=== PATIENT | male | born 1990 | race Caucasian/White ===

== ENCOUNTER 2017-06-11 14:03 | Emergency (ER) | payer OTHER ==
--- NOTE | 2017-06-11 15:26 | EDPHY ---
H & P Stated Complaint: [facility] then abx now w/ ? rxn to abx Time Seen by Provider: 06/11/17 15:25 - Personal History Current Tetanus/Diphtheria Vaccine: No Current Tetanus Diphtheria and Acellular Pertussis (TDAP): No - Medical/Surgical History Hx Asthma: No Hx Chronic Respiratory Disease: No Hx Diabetes: No Hx Cardiac Disease: No Hx Renal Disease: No Hx Cirrhosis: No Hx Alcoholism: No Hx HIV/AIDS: No Hx Splenectomy or Spleen Trauma: No Other PMH: Denies per PT - Social History Smoking Status: Current some day smoker Constitutional: Initial Vital Signs Temperature (C) 36.9 C 06/11/17 14:07 Heart Rate 102 H 06/11/17 14:07 Respiratory Rate 16 06/11/17 14:07 Blood Pressure 145/83 H 06/11/17 14:07 O2 Sat (%) 96 06/11/17 14:07 O2 Delivery Mode Room Air Allergies/Adverse Reactions: polymyxin B Allergy (Verified 06/11/17 14:07) Home Medications: Medication Instructions Recorded Loteprednol 0.5% [Lotemax 0.5%] 2 drops OP QID #1 opht.btl 06/11/17 Medical Decision Making ED Course/Re-evaluation: CHIEF COMPLAINT: Eye redness HISTORY OF PRESENT ILLNESS: The patient is a 26 y/o male complaining of bilateral eye redness for one month that worsened acutely over the last 3 days after starting eye drops prescribed by urgent care. He went to urgent care 4 days ago and was prescribed polymyxin b and trimethoprim eye drops for possible conjunctivitis. He had no improvement with these drops and noticed increasing redness and now bruising of his eyelids. This morning his eyes looked much more red around his iris and the whites of his eyes. He denies eye pain, vision changes, itching, fever, photophobia, or other complaints. He is normally healthy. REVIEW OF SYSTEMS: A 10 point review of systems was performed and is negative with the exception of the elements mentioned in the history of present illness. PHYSICAL EXAM: HR, BP, O2 Sat, RR. Temp noted General Appearance: Alert, well hydrated, appropriate, and non-toxic appearing. Head: Atraumatic without scalp tenderness or obvious injury Eyes: Pupils equal, round, reactive to light and accommodation, EOMI, no trauma. Conjunctival injection bilaterally. Subconjunctival hemorrhages bilaterally, cornea spared. Chemosis. Bilateral ecchymosis of upper and lower lids Ears: Clear bilaterally, no perforation, normal landmarks Nose: Atraumatic, no rhinorrhea, clear. Throat: Mucus membranes moist. Neck: Supple Respiratory: No distress Cardiovascular: Normal capillary refill. Musculoskeletal: Normal active ROM of all extremities, atraumatic. Neurological: Alert, appropriate, and interactive. Skin: No rashes, good turgor, no nodules on palpation. Past medical history: Denies Past surgical history: Denies Family history: Noncontributory Social history: Daily smoker DIFFERENTIAL DIAGNOSIS: The differential diagnosis for the patient's symptoms included but was not limited to subconjunctival hemorrhages, conjunctivitis, acute allergic reaction to medication and/or viral conjunctivitis. MEDICAL DECISION MAKING: This is a 26 y/o male who presents with bilateral subconjunctival hemorrhages following polymyxin b and trimethoprim eye drops prescribed by urgent care for possible conjunctivitis. The subconjunctival hemorrhages spare his cornea and are associated chemosis, conjunctival injection, and ecchymosis of his lid margins bilaterally. This has not affected his vision and he has no pain. I suspect possible allergic reaction to the medication or reaction to viral conjunctivitis. Plan to consult ophthalmology. [id number]: Consulted with Dr. Solorzano, ophthalmology. He will follow up with him on Tuesday. Recommends Lotemax drops in the meantime. Discussed recommendations with patient. He agrees with plan. Return precautions discussed. Departure - Departure Disposition: Home, Routine, Self-Care Clinical Impression: Subconjunctival hemorrhage Qualifiers: Laterality: bilateral Qualified Code(s): H11.33 - Conjunctival hemorrhage, bilateral Conjunctivitis Qualifiers: Conjunctivitis type: acute Acute conjunctivitis type: unspecified Laterality: bilateral Qualified Code(s): H10.33 - Unspecified acute conjunctivitis, bilateral Allergic reaction Qualifiers: Encounter type: initial encounter Qualified Code(s): T78.40XA - Allergy, unspecified, initial encounter Condition: Good Instructions: Loteprednol (Into the eye) Additional Instructions: 1. Stop eye drop from urgent care. 2. Use Lotemax eye drops as directed. 3. Follow up with Dr. Solorzano, investigation manager, on Tuesday. 4. Return to the ED for eye pain, vision changes, or other worsening of condition. Referrals: Mariusz Solorzano MD [Medical Doctor] - As per Instructions Stand Alone Forms: Work Excuse Prescriptions: Loteprednol 0.5% [Lotemax 0.5%] 2 drops OP QID #1 opht.btl Report Scribed for: Hank Bradshaw Report Scribed by: Farzaneh Slade Date of Report: 06/11/17 Time of Report: 15:32
[2017-06-11 16:24] VITALS: BP 110/87; PULSE 67; RESP 19; O2SAT 97
[2017-06-12 01:09] VITALS: TEMP 98.4
== END 2017-06-11 16:23 | disposition home or self-care (01) ==
DX: H11.33 Conjunctival hemorrhage, bilateral (principal); H10.33 Unspecified acute conjunctivitis, bilateral; T37.8X5A Adverse effect of other specified systemic anti-infectives and antiparasitics, initial encounter; F17.200 Nicotine dependence, unspecified, uncomplicated